=== PATIENT | male | born 2000 | race Caucasian/White ===

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

== ENCOUNTER 2018-02-01 21:34 | Emergency (ER) | payer OTHER ==
[~2018-02-01] VITALS: Ht 182.8 cm; Wt 122.5 kg
[2018-02-01 21:57] LABS: BASO % 0.5 % (0.0-1.0); EOS # 0.1 10*3/uL (0.0-0.4); EOS % 1.1 % (1.0-4.0); HEMOGLOBIN 15.4 g/dl (14.0-18.0); LYMPH # 2.6 10*3/uL (1.3-4.4); MEAN CELL VOLUME 90.4 fl (80.0-94.0); MEAN CORPUSCULAR HGB 30.9 pg (27.0-31.0); MEAN CORPUSCULAR HGB CONC 34.2 g/dl (33.0-37.0); MEAN PLATELET VOLUME 9.9 fl (9.6-12.3); MONO # 0.7 10*3/uL (0.1-1.0); MONO % 9.3 % (3.0-9.0); NEUT # 4.4 10*3/uL (2.3-7.9); NEUT % 55.8 % (47.0-73.0); PLATELET COUNT AUTOMATED 213 10*3/uL (130-400); RED BLOOD COUNT 4.98 10*6/uL (4.50-5.90); RED CELL DISTRI WIDTH 12.4 % (0-14.5); WHITE BLOOD COUNT 7.9 10*3/uL (4.8-10.8)
[2018-02-01 22:13] LABS: ALBUMIN 4.1 gm/dl (3.1-4.5); ALKALINE PHOSPHATASE 75 U/L (45-117); BUN 15 mg/dl (7-24); CHLORIDE 108 mmol/L (98-107); CREATININE 1.29 mg/dL (0.70-1.30); LIPASE 119 U/L (73-393); POTASSIUM 4.1 mmol/L (3.5-5.1); SGOT/AST 23 IU/L (3-35); SGPT/ALT 43 U/L (12-78); SODIUM 142 mmol/L (136-145); TOTAL PROTEIN 7.4 gm/dL (6.4-8.2)
[2018-02-01] MEDS ORDERED: KEFLEX500 M1 PO (23:11)
[2018-02-01] MEDS ORDERED: DOXYCYCLINE100 M3 PO (23:11)
[2018-02-01 23:19] VITALS: BP 110/41
== END 2018-02-01 23:25 | disposition home or self-care (01) ==
LOC: ED 21:34
PROVIDERS: Student in an Organized Health Care Education/Training Program
DX: L08.82 Omphalitis not of newborn (principal); F32.9 Major depressive disorder, single episode, unspecified

== ENCOUNTER 2023-04-14 15:25 | Emergency (ER) | payer BC ==
[~2023-04-14] VITALS: Ht 182.8 cm; Wt 127.0 kg
[~2023-04-14 15:25] MED LIST changes: +DOXYCYCLINE100 M3 PO; +KEFLEX500 M1 PO
[2023-04-14 15:35] VITALS: BP 137/83
[2023-04-14] MEDS ORDERED: AMOX-CLAV 875-1 EACH PO (17:31)
== END 2023-04-14 21:09 | disposition home or self-care (01) ==
LOC: ED 15:25
DX: H66.92 Otitis media, unspecified, left ear (principal); Z20.822 Contact with and (suspected) exposure to COVID-19; R05.9 Cough, unspecified; F17.220 Nicotine dependence, chewing tobacco, uncomplicated; Z79.2 Long term (current) use of antibiotics

== ENCOUNTER → 2024-01-08 | Outpatient (CLI) | payer BC ==
[~2024-01-08] MED LIST changes: +AMOX-CLAV 875-1 EACH PO
== END | disposition home or self-care (01) ==
LOC: RAD 13:13
PROVIDERS: ATTEND Nurse Practitioner
DX: M21.722 Unequal limb length (acquired), left humerus (principal); M21.721 Unequal limb length (acquired), right humerus; M79.604 Pain in right leg; M79.605 Pain in left leg; M54.50 Low back pain, unspecified